=== PATIENT | female | born 1970 ===

== ENCOUNTER 2022-12-31 19:49 | Emergency (ER) | payer SELFPAY ==
[2022-12-31 19:53] VITALS: BP 173/89; PULSE 93; RESP 20; TEMP 35.9; O2SAT 96
--- NOTE | 2022-12-31 19:53 | ECG_ITS ---
Measurements Intervals [place] Rate: 76 P: 213 CT: 220 QRS: 6 QRSD: 93 T: 38 QT: 346 QTc: 390 Interpretive Statements SINUS RHYTHM DELAYED PRECORDIAL R/S TRANSITION BASELINE ARTIFACT- I, II, AVR, AVF BORDERLINE ECG NO PREVIOUS ECG AVAILABLE FOR COMPARISON Electronically Signed On 12-31-2022 21:36:26 CDT by Sekou More D.O.
--- NOTE | 2022-12-31 23:12 | PC.NURSE ---
called pt. for room placement, no answer
--- NOTE | 2022-12-31 23:30 | PC.NURSE ---
Pt approached desk and states I just want to make sure I didn't miss my name being called. I fell asleep . Pt put back in the waiting room on the board.
--- NOTE | 2022-12-31 23:56 | PC.NURSE ---
Pt states to this RN My ride can't wait any longer and ambulated out of department with steady gait.
== END 2022-12-31 23:56 | disposition left against medical advice (07) ==
PROVIDERS: Emergency Provider Emergency Medicine
DX: R42 Dizziness and giddiness (principal)
CPT/HCPCS: 93005; 99199